=== PATIENT | male | born 1995 | race African-American/Black ===

== ENCOUNTER 2018-09-03 16:38 | Emergency (ER) | payer OTHER ==
[~2018-09-03] VITALS: Ht 180.3 cm; Wt 67.1 kg
[2018-09-03 16:43] VITALS: Ht 180.3 cm; Wt 67.1 kg
[2018-09-03 18:49] VITALS: BP 129/81
== END 2018-09-03 18:50 | disposition home or self-care (01) ==
LOC: ED 16:38
DX: S00.83XA Contusion of other part of head, initial encounter (principal); Y04.8XXA Assault by other bodily force, initial encounter; Y93.89 Activity, other specified; Y92.89 Other specified places as the place of occurrence of the external cause; Y99.8 Other external cause status